=== PATIENT | female | born 1975 | race Caucasian/White ===

== ENCOUNTER → 2021-03-16 | Outpatient (CLI) | payer OTHER ==
--- NOTE | 2021-03-16 17:03 | REP ---
INDICATION: DIAG BILATERAL RIGHT BREAST LUMP; RIGHT BREAST LUMP. COMPARISON: 03/10/2017, 02/18/2016, 02/02/2016. TECHNIQUE: Multiple tomographic sequences obtained bilaterally. Bilateral breast ultrasound performed as well. FINDINGS: Breast parenchyma is dense, limiting the sensitivity of the mammogram. The palpable lump on the left is marked on the skin. At that location there is a dominant smoothly marginated 7 cm mass. Just lateral to that there is a smoothly marginated 1.7 cm nodule. Left breast demonstrates multiple scattered smoothly marginated nodules throughout. No suspicious clusters of microcalcifications are seen. Real-time sonographic evaluation of the right breast at the site of the palpable lump demonstrates a cyst measuring 6.7 x 3.4 x 6.9 cm, with elastography interrogation average KP a value is 8.3. Just lateral to that is a cyst measuring 1.8 x 0.9 x 1.7 cm. Several other smaller cysts are seen in the right breast. Real-time sonographic evaluation of the left breast demonstrates multiple cysts scattered throughout. At 11 o'clock an oval cyst measures 4.8 x 1.3 x 4.4 cm, KP a 17.6. At 4 o'clock a simple cyst measures 3.2 x 1.4 x 3.0 cm, KP a 14.1. At 6 o'clock a cyst measures 2.9 x 1.2 x 3.9 cm, KP a 10.6. The [place] volumetric breast density pattern is C. IMPRESSION: BIRADS/ACR category 2, benign. Multiple smoothly marginated nodules identified bilaterally. The largest is at the site of the palpable lump in the right breast. These all represent benign cysts by ultrasound. This patient's [facility] lifetime breast cancer risk assessment score is 11.0%. This mammogram was interpreted with the aid of an FDA-approved computer-aided detection system. The patient states she had a clinical breast exam in February 2021. The patient letter being requested is M2. RECOMMENDATION: Repeat screening mammography recommended 1 year (for women over 40). <Electronically signed by Ignacio Isabel > 03/16/21 1963
== END ==
LOC: M WHC 14:35
PROVIDERS: ATTEND Emergency Medicine
DX: N60.01 Solitary cyst of right breast (principal)
CPT/HCPCS: 76642; 77066; G0279

== ENCOUNTER → 2022-06-02 | Outpatient (CLI) | payer OTHER | LOC: M WHC 15:28 | PROVIDERS: ATTEND Family Medicine | DX: Z12.31 Encounter for screening mammogram for malignant neoplasm of breast (principal) ==

== ENCOUNTER 2024-07-23 07:14 | Day surgery (SDC) | payer OTHER ==
[~2024-07-23] VITALS: Ht 185.4 cm; Wt 93.9 kg
[~2024-07-23 07:14] MED LIST: LIDOCAINE 2% 100MG/5ML SDV (FOR ANES.) As Ordered ONE; propofoL 200 MG/20 ML VIAL As Ordered ONE
[2024-07-23 09:06] VITALS: TEMP 97.6
[2024-07-23 09:23] VITALS: BP 117/75; O2SAT 97
== END 2024-07-23 09:29 | disposition home or self-care (01) ==
LOC: M OPP 07:14
PROVIDERS: ATTEND Internal Medicine Gastroenterology
DX: Z12.11 Encounter for screening for malignant neoplasm of colon (principal); K63.5 Polyp of colon; K64.0 First degree hemorrhoids; F17.210 Nicotine dependence, cigarettes, uncomplicated